=== PATIENT | male | born 1990 | race Caucasian/White ===

== ENCOUNTER 2023-04-28 16:47 | Emergency (ER) | payer OTHER, SELFPAY ==
[2023-04-28 16:57] VITALS: BP 131/83; PULSE 92; RESP 18; TEMP 36.8; O2SAT 97; BMI 30.4
--- NOTE | 2023-04-28 17:12 | ED_ITS ---
HPI - Abdominal Pain General Chief Complaint: Abdominal Pain Stated Complaint: ABDOMINAL PAIN Time Seen by Provider: 04/28/23 16:53 Source: patient Mode of arrival: walk-in Limitations: no limitations History of Present Illness HPI narrative: Patient is a 33-year-old male who presents to the emergency department for epigastric discomfort for the last 2 days. He states he has had viral upper respiratory symptoms of fevers, chills, cough, congestion for the last 4 to 5 days and in the last 2 days has developed discomfort with eating. He has had associated diarrhea but no vomiting. No objective fevers today. He was seen at [facility] urgent care yesterday and had negative testing for COVID and flu. He states he came to the emergency department today because he is concerned for gallbladder dysfunction. No previous abdominal surgeries. No urinary symptoms. Related Data Previous Rx's Medication Instructions Recorded albuterol sulfate 90 mcg/actuation 2 inh inhalation Q4H PRN shortness 04/28/23 aerosol inhaler of breath or wheezing #8.5 grams vfwntlcogktuijv-krabmzitjdsdjzh-ZM 10 ml PO Q6H PRN cold symptoms 04/28/23 2 mg-30 mg-10 mg/5 mL oral syrup #200 mL (Bromfed DM) ondansetron 4 mg disintegrating 4 mg PO Q6H PRN nausea and 04/28/23 tablet vomiting #12 tabs pantoprazole 40 mg tablet,delayed 40 mg PO DAILY #7 tabs 04/28/23 release (Protonix) Allergies Allergy/AdvReac Type Severity Reaction Status Date / Time No Known Drug Allergies Allergy Verified 04/28/23 16:57 Review of Systems ROS Constitutional Reports: fever and chills Ears, nose, mouth, and throat Reports: nasal congestion; Denies: throat pain Cardiovascular Denies: chest pain Respiratory Reports: cough; Denies: shortness of breath Gastrointestinal Reports: abdominal pain, nausea and diarrhea; Denies: vomiting Musculoskeletal Denies: back pain or neck pain Integumentary/Breast Denies: rash Neurological Denies: headache PFSH PFSH Social History Smoking status: Never smoker Exam Narrative Exam Narrative: Gen.: Awake, alert, in no distress Head: Normocephalic, atraumatic ENT: Moist mucous membranes Respiratory: No respiratory distress, lungs clear bilaterally Cardio: Regular rate and rhythm Gastrointestinal: Abdomen is soft, nondistended and nontender to palpation Extremities: Moves extremities equally Psych: Normal mood and affect Neuro: No focal neuro deficit Skin: Warm, dry, intact Constitutional Vital Signs, click to edit/add: Last Vital Signs Temp 98.3 F 04/28/23 16:57 Pulse 70 04/28/23 18:12 Resp 18 04/28/23 18:12 BP 154/80 H 04/28/23 18:12 Pulse Ox 98 04/28/23 18:12 O2 Del Method Room Air 04/28/23 16:57 Course Vital Signs Vital signs: Vital Signs Temperature 98.3 F 04/28/23 16:57 Pulse Rate 92 H 04/28/23 16:57 Respiratory Rate 18 04/28/23 16:57 Blood Pressure 131/83 04/28/23 16:57 Pulse Oximetry 97 04/28/23 16:57 Oxygen Delivery Method Room Air 04/28/23 16:57 Temperature 98.3 F 04/28/23 16:57 Pulse Rate 70 04/28/23 18:12 Respiratory Rate 18 04/28/23 18:12 Blood Pressure 154/80 H 04/28/23 18:12 Pulse Oximetry 98 04/28/23 18:12 Oxygen Delivery Method Room Air 04/28/23 16:57 MDM - Abdominal Pain MDM Narrative Medical decision making narrative: Patient was medicated with GI cocktail, Zofran. Lab studies were obtained showing normal white blood cell count and no bandemia, elevated LFTs but normal bilirubin and lipase. Due to concern for gallbladder issues, the patient was sent for chest x-ray and CT scan of the abdomen and pelvis. No acute abnormalities noted although the patient does have groundglass opacity in the lung bases consistent with viral infection/possibly COVID. This may explain the elevated LFTs. Patient was swabbed for COVID and influenza yesterday. He was encouraged to continue to take Motrin, Tylenol, increase fluids. They request an albuterol inhaler refill. Return to the ER if symptoms change or worsen. Abdomen is soft and benign on recheck by attending physician Medical Records Attestation: I reviewed the patient's medical records. Lab Data Attestation: I reviewed the patient's lab results. Labs: Lab Results 12/23/23 Range/Units 17:21 WBC 6.8 (4.0-11.0) 10^3/uL RBC 4.70 (4.70-6.10) 10^6/uL Hgb 14.0 (14.0-18.0) g/dL Hct 42.0 (42.0-54.0) % MCV 89.4 (80.0-94.0) fL MCH 29.8 (25.9-34.0) pg MCHC 33.3 (29.9-35.2) g/dL RDW 11.4 (11.0-15.0) % Plt Count 161 (150-450) 10^3/uL MPV 9.1 L (9.5-13.5) fL Neut % (Auto) 64.7 (43.0-75.0) % Lymph % (Auto) 19.1 L (20.5-60.0) % Braxton % (Auto) 12.9 H (1.7-12.0) % Eos % (Auto) 2.8 (0.9-7.0) % Baso % (Auto) 0.4 (0.2-2.0) % Neut # (Auto) 4.4 (1.4-6.5) 10^3/uL Lymph # (Auto) 1.3 (1.2-3.8) 10^3/uL Braxton # (Auto) 0.9 H (0.3-0.8) 10^3/uL Eos # (Auto) 0.2 (0.0-0.7) 10^3/uL Baso # (Auto) 0.0 (0.0-0.1) 10^3/uL Abs Immat Gran (auto) 0.01 (0.00-0.03) 10^3/uL Imm/Tot Granulo (auto) 0.1 (0.0-0.5) % Sodium 138 (136-145) mmol/L Potassium 3.8 (3.5-5.1) mmol/L Chloride 101 (98-107) mmol/L Carbon Dioxide 27.9 (21.0-32.0) mmol/L Anion Gap 12.9 BUN 9.0 (7.0-18.0) mg/dL Creatinine 0.85 (0.70-1.30) mg/dL Est GFR ( Amer) >60 (>=60) Est GFR (Non-Af Amer) >60 (>=60) BUN/Creatinine Ratio 10.6 Glucose 92 (74-106) mg/dL Calcium 9.0 (8.5-10.1) mg/dL Total Bilirubin 0.6 (0.2-1.0) mg/dL AST 55 H (15-37) U/L ALT 148 H (16-63) U/L Alkaline Phosphatase 201 H (46-116) U/L Total Protein 7.2 (6.4-8.2) g/dL Albumin 3.2 L (3.4-5.0) g/dL Globulin 4.0 g/dL Albumin/Globulin Ratio 0.8 Lipase 28.0 (16.0-77.0) U/L Imaging Data Chest x-ray: Attestation: I have reviewed the pertinent imaging results. Radiologist's impression: Procedure: XR chest 1V EXAM: XR chest 1V HISTORY: . Cough . COMPARISON: None. TECHNIQUE: Single view of the chest FINDINGS: Heart and vascularity are unremarkable. Lungs are free of focal infiltrates. No acute bony abnormality is appreciated. IMPRESSION: No acute heart or lung disease identified. Electronically authenticated by: ETELVINA ESPARZA Date: 04/28/2023 18:52 CT scan - abdomen: Attestation: I have reviewed the pertinent imaging results. Discharge Plan Discharge Chief Complaint: Abdominal Pain Clinical Impression: Upper respiratory infection, Abdominal pain Patient Disposition: Home, Self-Care Time of Disposition Decision: 19:10 Condition: Good Prescriptions / Home Meds: New albuterol sulfate 90 mcg/actuation HFA aerosol inhaler 2 inh inhalation Q4H PRN (Reason: shortness of breath or wheezing) Qty: 8.5 0RF emdhubegcywuybo-flrnkrpau-TW [Bromfed DM] 2-30-10 mg/5 mL syrup 10 ml PO Q6H PRN (Reason: cold symptoms) Qty: 200 0RF ondansetron 4 mg tablet,disintegrating 4 mg PO Q6H PRN (Reason: nausea and vomiting) Qty: 12 0RF pantoprazole [Protonix] 40 mg tablet,delayed release (DR/EC) 40 mg PO DAILY Qty: 7 0RF Instructions: Upper Respiratory Infection (ED), Acute Abdominal Pain (ED) Stand Alone Forms: Portal Instructions Referrals: Physician,Non-Staff, MD [Primary Care Provider] - 1 week
[2023-04-28] MEDS: MAALOX (MAG HYDROX/ALUMINUM HYD/SIMETH) 30 ML ORAL.SUSP PO (17:16)
[2023-04-28 17:27] LABS: Basophils Percent Auto 0.4 % (0.2-2.0); Eosinophils Absolute Auto 0.2 10^3/uL (0.0-0.7); Eosinophils Percent Auto 2.8 % (0.9-7.0); Immature Granulocytes Abs Auto 0.01 10^3/uL (0.00-0.03); Immature Granulocytes Pct Auto 0.1 % (0.0-0.5); Lymphocytes Absolute Auto 1.3 10^3/uL (1.2-3.8); Lymphocytes Percent Auto 19.1 % (20.5-60.0); Mean Corpuscular HGB Conc 33.3 g/dL (29.9-35.2); Mean Corpuscular Hemoglobin 29.8 pg (25.9-34.0); Mean Corpuscular Volume 89.4 fL (80.0-94.0); Mean Platelet Volume 9.1 fL (9.5-13.5); Monocytes Absolute Auto 0.9 10^3/uL (0.3-0.8); Monocytes Percent Auto 12.9 % (1.7-12.0); Neutrophils Absolute Auto 4.4 10^3/uL (1.4-6.5); Neutrophils Percent Auto 64.7 % (43.0-75.0); Platelet Count 161 10^3/uL (150-450); Red Cell Distribution Width 11.4 % (11.0-15.0); White Blood Count 6.8 10^3/uL (4.0-11.0)
[2023-04-28] MEDS: ONDANSETRON 4 MG RAPDIS TABLET SL (17:30)
[2023-04-28 17:40] LABS: Alanine Aminotransferase 148 U/L (16-63); Albumin Globulin Ratio 0.8; Albumin Level 3.2 g/dL (3.4-5.0); Alkaline Phosphatase 201 U/L (46-116); Anion Gap 12.9; Aspartate Amino Transferase 55 U/L (15-37); BUN Creatinine Ratio 10.6; Bilirubin Total 0.6 mg/dL (0.2-1.0); Carbon Dioxide 27.9 mmol/L (21.0-32.0); Chloride 101 mmol/L (98-107); Estimated GFR (African America >60 (>=60); Estimated GFR (Non-African Ame >60 (>=60); Glucose 92 mg/dL (74-106); Potassium 3.8 mmol/L (3.5-5.1); Sodium 138 mmol/L (136-145); Total Protein 7.2 g/dL (6.4-8.2)
--- NOTE | 2023-04-28 17:50 | CT_ITS ---
The [address] [address] Patient Name: CHESTER ANGEL MRN: [facility]:[id number] date: 1990 Sex: M Assigned Patient Location: ER Current Patient Location: ED.MAIN Accession/Order Number: [id number] Exam Date: 04/28/2023 18:30 Report Date: 04/28/2023 19:36 At the request of: MICHAEL WILLARD Procedure: CT abdomen pelvis w con EXAM: CT abdomen pelvis w con HISTORY: transaminitis. Epigastric abdominal pain. COMPARISON: None. TECHNIQUE: Enhanced helical acquisition obtained through the abdomen and the pelvis. FINDINGS: Minimal patchy groundglass attenuation is noted within the included aspect of the right lower lobe which may be secondary to an underlying mild infectious or inflammatory pneumonitis, potentially related to Covid infection. The pleural spaces are clear. Unremarkable gallbladder. No significant biliary ductal dilatation. The liver, spleen, pancreas, adrenal glands and the kidneys are unremarkable. No enlarged lymph nodes within the abdomen or the pelvis. There are a few scattered colonic diverticula. Normal appendix. No ascites or focal intracranial fluid collections. Chronic bilateral L5 spondylolysis. CT/CT abdomen pelvis w con IMPRESSION: 1. Minimal patchy groundglass attenuation within the included aspect of the right lower lobe. This may occur in the setting of underlying atypical or viral pneumonitis, particularly Covid infection. 2. There are a few scattered colonic diverticula without diverticulitis. 3. Chronic bilateral L5 spondylolysis. Electronically authenticated by: JANENE DAVILA Date: 04/28/2023 19:36
--- NOTE | 2023-04-28 17:56 | XR_ITS ---
The [address] [address] Patient Name: CHESTER ANGEL MRN: [id number] date: 1990 Sex: M Assigned Patient Location: ER Current Patient Location: ER Accession/Order Number: [id number] Exam Date: 04/28/2023 18:30 Report Date: 04/28/2023 18:52 At the request of: MICHAEL WILLARD Procedure: XR chest 1V EXAM: XR chest 1V HISTORY: . Cough . COMPARISON: None. TECHNIQUE: Single view of the chest FINDINGS: Heart and vascularity are unremarkable. Lungs are free of focal infiltrates. No acute bony abnormality is appreciated. XR/XR chest 1V IMPRESSION: No acute heart or lung disease identified. Electronically authenticated by: ETELVINA ESPARZA Date: 04/28/2023 18:52
[2023-04-28 18:12] VITALS: BP 154/80; PULSE 70; RESP 18; O2SAT 98
== END 2023-04-28 19:23 | disposition home or self-care (01) ==
PROVIDERS: Physician Assistant; Emergency Provider Emergency Medicine
DX: R10.9 Unspecified abdominal pain (principal); J06.9 Acute upper respiratory infection, unspecified
CPT/HCPCS: 36415; 71045; 74177; 80053; 83690; 85025; 99285; Q9967